=== PATIENT | male | born 1970 | race Caucasian/White ===

== ENCOUNTER → 2018-08-14 | Outpatient (CLI) | payer OTHER ==
[~2018-08-14] MED LIST: AMBIEN 10 MG TA10 MG PO; ANAPROX DS550 MG PO; ANTIFLAMATORY; AZITHROMYCIN 2250 MG PO; DILAUDID 2 MG TA2 MG PO; DOLOPHINE HCL10 MG PO; FLEXERIL PO; KEFLEX500 MG; LISINOPRIL20 MG PO; LISINOPRIL40 MG; MEDROL DOSPAK21 TA1 PO; MELOXICAM7.5 MG PO; MOBIC15 MG PO; NEURONTIN600 MG PO; NOHOMEMEDICATIONS; NORCO 5-325 TA1 EACH PO; NORCO 7.5-3251 EACH PO; OXYCODONE HCL15 MG PO; PERCOCET 5-3251 EACH; PERCOCET 5-3251 EACH PO; PREDNISONE 20 M20 M1 PO; PRINIVIL10 MG; ROBAXIN 750 MG750 M1 PO; ROBAXIN 750 MG750 MG PO; TRAMADOL 50 MG50 MG PO; XANAX 0.5 MG0.5 M1 PO; XANAX 0.5 MG0.5 MG PO; XANAX 1 MG TABLE1 MG PO; XANAX1 MG; ZANAFLEX4 MG PO; ZPAK PO; amitriptyline PO
[2018-08-14 13:12] LABS: ABSOLUTE BASOPHILS 0.1 thou/uL (0.0-0.2); ABSOLUTE EOSINOPHILS 0.2 thou/uL (0.0-0.7); ABSOLUTE LYMPHOCYTES 3.5 thou/uL (0.8-5.3); ABSOLUTE MONOCYTES 0.8 thou/uL (0.0-1.2); ABSOLUTE NEUTROPHILS 7.3 thou/uL (1.6-8.1); BASOPHILS 0.8 %; EOSINOPHILS 1.6 %; HEMATOCRIT 43.2 % (42.0-52.0); HEMOGLOBIN 14.3 gm/dL (14.0-18.0); LYMPHOCYTES 29.6 %; MCH 29.7 pg (26.0-34.0); MCHC 33.2 g/dL (28.0-37.0); MCV 89.7 fL (80.0-100.0); MONOCYTES 6.5 %; MPV 8.4 fl. (7.2-11.1); NUCLEATED RBCS 0 /100WBC; PLATELET COUNT* 294 thou/uL (150-400); POLYS 61.5 %; RBC 4.81 mil/uL (4.50-6.00); RDW-CV 14.6 % (10.5-14.5); WBC 11.8 thou/uL (4.0-11.0)
== END ==
LOC: M.LAB 13:00
PROVIDERS: Internal Medicine
DX: D72.829 Elevated white blood cell count, unspecified (principal)

== ENCOUNTER 2019-08-16 11:41 | Emergency (ER) | payer OTHER ==
[~2019-08-16] VITALS: Ht 170.2 cm; Wt 72.6 kg
[2019-08-16 11:50] VITALS: BP 152/105
== END 2019-08-16 12:24 | disposition left against medical advice (07) ==
LOC: M.ERS 11:41
DX: Z53.21 Procedure and treatment not carried out due to patient leaving prior to being seen by health care provider (principal)

== ENCOUNTER → 2020-01-27 | Outpatient (CLI) | payer OTHER | LOC: M.RAD 14:53 | PROVIDERS: ATTEND Internal Medicine | DX: I10 Essential (primary) hypertension (principal); F17.200 Nicotine dependence, unspecified, uncomplicated ==

== ENCOUNTER → 2020-04-21 | Outpatient (CLI) | payer OTHER | LOC: M.RAD 09:01 | PROVIDERS: ATTEND Internal Medicine | DX: J98.4 Other disorders of lung (principal) ==

== ENCOUNTER → 2020-08-09 | Outpatient (CLI) | payer OTHER | LOC: M.CT 16:00 | PROVIDERS: ATTEND Internal Medicine | DX: R93.89 Abnormal findings on diagnostic imaging of other specified body structures (principal); Z77.090 Contact with and (suspected) exposure to asbestos ==